=== PATIENT | male | born 1940 | race Caucasian/White ===

== ENCOUNTER 2022-01-03 20:52 | Emergency (ER) | payer OTHER ==
[~2022-01-03] VITALS: Ht 172.7 cm; Wt 77.1 kg
[2022-01-03] MEDS ORDERED: IOHEXOL 350 MG/ML 100ML IJ ONE (21:53)
[2022-01-03 22:06] LABS: Basophils # (auto) 0 10 ^3/uL (0-0.2); Basophils % (auto) 0.1 % (0.0-2.0); Eosinophils # (auto) 0 10 ^3/uL (0-0.8); Eosinophils % (auto) 0.2 % (0.0-7.0); Hematocrit 28.9 % (41.0-53.0); Hemoglobin 10.3 g/dL (13.5-17.5); Lymphocytes # (auto) 0.1 10 ^3/uL (0.4-5.4); Lymphocytes % (auto) 1.4 % (10.0-50.0); Mean Corpuscular Hemoglobin 32.7 pg (28.0-32.0); Mean Corpuscular Hgb Conc. 35.7 g/dL (32.0-36.0); Mean Corpuscular Volume 91.5 fL (80.0-100.0); Neutrophils # (auto) 7.5 10 ^3/uL (1.6-8.6); Neutrophils % (auto) 86.3 % (37.0-80.0); Red Blood Cells 3.16 10^6/uL (4.5-5.90); Red Cell Distribution Width 16.6 % (11.8-14.3); White Blood Cell 8.7 10^3/uL (4.4-10.8)
[2022-01-03 22:22] LABS: BUN/Creatinine Ratio 19.7; Calcium 8.3 mg/dL (8.5-10.1); Potassium 3.6 mmol/L (3.5-5.1)
[2022-01-03 22:25] LABS: Total Protein 7.1 g/dL (6.4-8.2)
[2022-01-03 23:00] VITALS: BP 118/79
== END 2022-01-04 00:47 | disposition home or self-care (01) ==
LOC: ER 20:52 → EDBD 20:52 → ER 01-04 00:47
DX: J95.01 Hemorrhage from tracheostomy stoma (principal); R06.02 Shortness of breath
CPT/HCPCS: 36415; 71045; 71275; 80053; 83880; 84484; 85025; 93005; 99285; Q9967

== ENCOUNTER 2022-01-31 13:53 | Inpatient (IN) | payer OTHER ==
[~2022-01-31] VITALS: Ht 175.3 cm; Wt 80.7 kg
[2022-01-31 14:56] LABS: Basophils # (auto) 0.1 10 ^3/uL (0-0.2); Basophils % (auto) 0.3 % (0.0-2.0); Eosinophils # (auto) 0 10 ^3/uL (0-0.8); Hematocrit 26.8 % (41.0-53.0); Hemoglobin 9.1 g/dL (13.5-17.5); Lymphocytes # (auto) 0.1 10 ^3/uL (0.4-5.4); Lymphocytes % (auto) 0.3 % (10.0-50.0); Mean Corpuscular Hemoglobin 30.8 pg (28.0-32.0); Mean Corpuscular Hgb Conc. 34.1 g/dL (32.0-36.0); Mean Corpuscular Volume 90.4 fL (80.0-100.0); Monocytes # (auto) 0.9 10 ^3/uL (0-1.3); Monocytes % (auto) 3.5 % (0.0-12.0); Neutrophils # (auto) 23.2 10 ^3/uL (1.6-8.6); Neutrophils % (auto) 95.9 % (37.0-80.0); Red Blood Cells 2.97 10^6/uL (4.5-5.90); Red Cell Distribution Width 17.6 % (11.8-14.3); White Blood Cell 24.2 10^3/uL (4.4-10.8)
[2022-01-31 15:11] LABS: Albumin 1.9 g/dL (3.4-5.0); Calcium 8.2 mg/dL (8.5-10.1); Potassium 4.1 mmol/L (3.5-5.1)
[2022-01-31 15:15] LABS: BUN/Creatinine Ratio 21.1
[2022-01-31 15:16] LABS: Bilirubin, Total 0.8 mg/dL (0.2-1.0); Total Protein 7.2 g/dL (6.4-8.2)
[2022-01-31 15:26] LABS: Lactic Acid w/Reflex 3.9 mmol/L (0.4-2.0)
[2022-01-31] MEDS ORDERED: IOHEXOL 350 MG/ML 100ML IJ ONE (15:28)
[2022-01-31] MEDS ORDERED: AZITHROMYCIN 500MG/ 250ML 250 ML IV ONE (16:30)
[2022-01-31] MEDS ORDERED: NITROGLYCERIN 0.4 MG SL TAB SL PRN (16:30)
[2022-01-31] MEDS ORDERED: cefTRIAXone 1GM/50ML D5W 50 ML IV ONE (16:30)
[2022-01-31] MEDS ORDERED: MORPHINE SULFATE INJECTION 2 MG/ML SYRG IV PRN (16:30)
[2022-01-31] MEDS ORDERED: SODIUM CHLORIDE 0.9% 3,000 ML IV ONE (16:30)
[2022-01-31 17:52] LABS: Urine Bacteria FEW /hpf (None Seen); Urine Blood Negative /uL (Negative); Urine Hyaline Cast FEW /lpf (0 - 2); Urine Mucus FEW (None Seen); Urine WBC 2 /hpf (0 - 3)
[2022-01-31] MEDS ORDERED: VANCOMYCIN 1GM/250ML 250 ML IV ONE (18:15)
[2022-01-31] MEDS ORDERED: NOREPINEPHRINE 8 MG/250ML KIT 250 ML IV SCH (18:45)
[2022-01-31] MEDS ORDERED: MORPHINE SULFATE 4 MG/ML SYR/VIAL IV PRN (18:45)
[2022-01-31] MEDS ORDERED: VANCOMYCIN PER PHARMACY 1,000 MG IV SCH (18:45)
[2022-01-31] MEDS ORDERED: MIDAZOLAM HCL 2MG/2ML 2ml VIAL (1mg/ml) IV ONE (18:45)
[2022-01-31] MEDS ORDERED: SODIUM CHLORIDE 0.9% 1,000 ML IV SCH (19:00)
[2022-01-31 19:16] LABS: Magnesium 1.9 mg/dL (1.6-2.6); Phosphorus 4.2 mg/dL (2.5-4.90)
[2022-01-31 19:23] LABS: INR 1.25 (0.9-1.15); Partial Thromboplastin Time 28.3 sec (23.6-33.0)
[2022-01-31 20:00] VITALS: BP 137/72
[2022-01-31] MEDS: LORazepam 2MG/ML-1ML VIAL IV PRN (20:01)
[2022-01-31] MEDS: IPRATROPIUM BROM 0.5 MG/2.5ML INH SOL NEB SCH (21:52)
[2022-01-31] MEDS ORDERED: ACETYLCYSTEINE 10 %(100MG/ML) SOL 4ML NEB SCH (22:00)
[2022-01-31 22:05] VITALS: BP 87/49
[2022-01-31 23:25] VITALS: BP 87/49
[2022-01-31 23:51] VITALS: BP 125/68
[2022-02-01] MEDS: LORazepam 2MG/ML-1ML VIAL IV PRN (00:14)
[2022-02-01] MEDS: PIPERACILLIN-TAZO 4.5GM 100 ML IV SCH ×2 (00:24→06:33)
[2022-02-01 01:44] VITALS: BP 135/61
[2022-02-01] MEDS ORDERED: MIDAZOLAM DRIP 50 mg/50mL 50 ML IV SCH (01:45)
[2022-02-01] MEDS: IPRATROPIUM BROM 0.5 MG/2.5ML INH SOL NEB SCH (01:51)
[2022-02-01 02:11] LABS: Alcohol, Urine < 3.0 mg/dL (0-10); Amphetamine Screen, Urine NEGATIVE (NEGATIVE); Barbiturate Scree,Urine NEGATIVE (NEGATIVE); Benzodiazephine Screen, Urine POSITIVE (NEGATIVE); Cannabinoid Screen, Urine NEGATIVE (NEGATIVE); Cocaine Screen, Urine NEGATIVE (NEGATIVE); Opiate Scree,Urine NEGATIVE (NEGATIVE); Phencyclidine Screen, Urine NEGATIVE (NEGATIVE); Protein, Urine 127.4 mg/dL (0.0-11.9)
[2022-02-01] MEDS ORDERED: PROPOFOL 100 ML IV SCH (02:15)
[2022-02-01] MEDS ORDERED: PROPOFOL 100 ML IV ONE (02:16)
[2022-02-01 02:41] LABS: Urine Bacteria NONE SEEN /hpf (None Seen); Urine Blood 3+ /uL (Negative); Urine Mucus FEW (None Seen); Urine WBC 5 /hpf (0 - 3)
[2022-02-01] MEDS ORDERED: VASOPRESSIN 50 UNITS in D5W 5% 247.5 ML IV SCH ×4 (03:30)
[2022-02-01] MEDS ORDERED: HEPARIN SODIUM (PORCINE) 5000 UNITS/ML 1ML VIAL SC SCH ×2 (04:00→10:00)
[2022-02-01] MEDS ORDERED: ALBUMIN 25% 100 ML IV SCH (04:00)
[2022-02-01 04:04] VITALS: BP 120/60
[2022-02-01] MEDS ORDERED: VASOPRESSIN 20 UNIT/ML ONE (06:02)
[2022-02-01 06:56] VITALS: BP 152/125
[2022-02-01 07:09] LABS: Hematocrit 24.8 % (41.0-53.0); Mean Corpuscular Hemoglobin 38.9 pg (28.0-32.0); Mean Corpuscular Hgb Conc. 36.2 g/dL (32.0-36.0); Mean Corpuscular Volume 107.4 fL (80.0-100.0); Red Blood Cells 2.31 10^6/uL (4.5-5.90); Red Cell Distribution Width 14.4 % (11.8-14.3); White Blood Cell 6.6 10^3/uL (4.4-10.8)
[2022-02-01 07:14] LABS: Basophils % (manual) 0 (0.0-2.0); Blast Cells 0; Eosinophils % (manual) 0 (0-7); Promyelocytes % 0; Reactive Lymphocytes 0
[2022-02-01] MEDS ORDERED: AMIODARONE HCL 150 MG in D5W 5% 100 ML IV ONE (07:15)
[2022-02-01] MEDS ORDERED: AMIODARONE 450mg/250ml AE 250 ML IV SCH (07:15)
[2022-02-01 07:24] LABS: INR 1.66 (0.9-1.15); Partial Thromboplastin Time 27.6 sec (23.6-33.0)
[2022-02-01 07:25] LABS: Magnesium 2.2 mg/dL (1.6-2.6); Potassium 3.1 mmol/L (3.5-5.1); Uric Acid 13.2 mg/dL (3.5-7.2)
[2022-02-01 07:36] LABS: Albumin 2.9 g/dL (3.4-5.0); BUN/Creatinine Ratio 15.1; Bilirubin, Total 7.8 mg/dL (0.2-1.0); CRP High Sensitivity 5.32 mg/dL (< 0.3); Calcium 9.4 mg/dL (8.5-10.1); Phosphorus 3.1 mg/dL (2.5-4.90)
[2022-02-01 08:20] LABS: Band Neutrophils % (manual) 42; Lymphocytes % (manual) 33 (10.0-50.0); Metamyelocytes % 3; Monocytes % (manual) 3 (0-12); Myelocytes % 1
[2022-02-01] MEDS ORDERED: PANTOPRAZOLE 40 MG/10 ML VIAL INJ IV SCH (10:00)
[2022-02-01] MEDS ORDERED: SODIUM BICARBONATE 8.4% INJ 50ML SYRINGE IV ONE (12:20)
[2022-02-01] MEDS ORDERED: EPINEPHrine HCL 1 MG/10 ML SYRG IV ONE (12:20)
[2022-02-01] MEDS ORDERED: VANCOMYCIN 1GM/250ML 250 ML IV ONE (13:00)
[2022-02-01] MEDS ORDERED: CEFEPIME 1GM/ 50ML 50 ML IV SCH (14:00)
[2022-02-01] MEDS ORDERED: VANCOMYCIN 1GM/250ML 250 ML IV SCH (19:00)
== END 2022-02-01 07:10 | DRG 871 ==
LOC: EDBD 13:53 → ER 13:53 → TELE 16:18
PROVIDERS: ADMIT Hospitalist; ATTEND Internal Medicine Pulmonary Disease
PROC: 5A1935Z Respiratory Ventilation, Less than 24 Consecutive Hours (ICD-10-PCS; principal; 2022-01-31)
PROC: 0BH17EZ Insertion of Endotracheal Airway into Trachea, Via Natural or Artificial Opening (ICD-10-PCS; 2022-01-31)
DX: A41.9 Sepsis, unspecified organism (principal); J96.01 Acute respiratory failure with hypoxia; R65.21 Severe sepsis with septic shock; J18.9 Pneumonia, unspecified organism; D64.9 Anemia, unspecified; Z20.822 Contact with and (suspected) exposure to COVID-19; Y95 Nosocomial condition; E88.09 Other disorders of plasma-protein metabolism, not elsewhere classified; Z85.01 Personal history of malignant neoplasm of esophagus; Z85.21 Personal history of malignant neoplasm of larynx; Z93.0 Tracheostomy status
CPT/HCPCS: 36415; 36600; 70450; 71045; 71275; 80053; 80061; 80202; 80307; 81001; 82550; 82728; 82805; 83036; 83605; 83615; 83690; 83735; 83880; 84100; 84156; 84443; 84484; 84550; 85007; 85025; 85027; 85379; 85610; 85652; 85730; 86141; 87040; 87070; 87077; 87086; 87186; 87205; 93005; 94002; 94003; 94640; 96365; 96368; 99291; G0378; J0696; J2250; J2543; J2704; J7060; P9047